=== PATIENT | female | born 1985 | race Caucasian/White ===

== ENCOUNTER 2018-03-06 14:56 | Emergency (ER) | payer OTHER ==
[~2018-03-06] VITALS: Ht 160 cm; Wt 54.4 kg
[2018-03-06 15:12] VITALS: BP 112/73
[2018-03-06] MEDS ORDERED: Tetanus/Diptheria/Pertussis Vaccine 0.5ml Syr IM ONE (15:15)
[2018-03-06] MEDS ORDERED: VIBRAMYCIN100 MG ORAL (15:35)
--- NOTE | 2018-03-06 15:52 | Emergency Room Report ---
History of Present Illness General Chief Complaint: Skin Rash/Abscess Source: Patient Present Illness HPI 32-year-old female presents to the emergency department complaining of 10 out of 10 in severity pain, tenderness, swelling, erythema to the dorsum of the left hand progressive 4 days status post IV drug use. Patient denies fevers, chills, nausea or vomiting. Patient does not know when her last tetanus vaccination was. Pt. reports she thinks she has a UTI due to frequency, denies hematuria, dysuria, urgency. Denies abdominal pain or tenderness. denies . Denies CP, Palpitations, LOC, AMS, dizziness, Changes in Vision, Sensation, paresthesias, or a sudden severe headache. Allergies: Coded Allergies: CIPROFLOXACIN (Verified Allergy, Unknown, 03/06/18) Patient History Past Medical History: see triage record Past Surgical History: none Pertinent Family History: none Social History: Reports: drug use Last Menstrual Period: 01/31/18 : 3 Para: 2 Reviewed Nursing Documentation: PMH: Agreed; PSxH: Agreed Review of Systems All Other Systems: negative except mentioned in HPI Physical Exam Vital Signs Date Time Temp Pulse Resp B/P (MAP) Pulse Ox O2 Delivery O2 Flow Rate FiO2 03/06/18 15:02 98.1 90 16 107/73 97 Room Air 98.1 Sp02 EP Interpretation: reviewed, normal General Appearance: no apparent distress, alert, GCS 15, non-toxic Head: normocephalic, atraumatic ENT: hearing grossly normal, normal voice Neck: full range of motion Respiratory: lungs clear, normal breath sounds, no respiratory distress, no wheezing, speaking full sentences Cardiovascular #1: regular rate, rhythm, other - decreased cap refill to the left ring finger compared to other fingers, pt. noted to have a ring on that is tight. Gastrointestinal: non tender Genitourinary: normal inspection, no CVA tenderness Musculoskeletal: back normal, gait/station normal, normal range of motion, swelling - dorsum of the left hand., tender - ttp superficially to the dorsum of the left hand. Neurologic: alert, oriented x3, responsive, motor strength/tone normal, sensory intact, speech normal, grossly normal Psychiatric: judgement/insight normal Skin: no rash, warm/dry, well hydrated, other - erythema, swelling and increased temperature to palpation to the dorsum of the left hand over lying the bases of the 3rd, 4th, and 5th metacarpal/ carpal area. Medical Decision Making PA Attestation Dr. Lomax is my supervising Physician whom patient management has been discussed with. Diagnostic Impression: Primary Impression: Cellulitis Qualified Codes: L03.114 - Cellulitis of left upper limb Additional Impression: UTI (urinary tract infection) Qualified Codes: N30.00 - Acute cystitis without hematuria ER Course 32-year-old female presents to the emergency department complaining of 10 out of 10 in severity pain, tenderness, swelling, erythema to the dorsum of the left hand progressive 4 days status post IV drug use. Patient denies fevers, chills, nausea or vomiting. Patient does not know when her last tetanus vaccination was. Pt. reports she thinks she has a UTI due to frequency, denies hematuria, dysuria, urgency. Denies CP, Palpitations, LOC, AMS, dizziness, Changes in Vision, Sensation, paresthesias, or a sudden severe headache. Ddx considered but are not limited to cellulitis, abscess, cystic acne, necrotizing fasciitis, insect bite. Vital signs: are WNL, pt. is afebrile H&PE are most consistent with ST Cellulitis of the left hand. ORDERS: -Xray left hand. -Urine HCG: negative - UA: consistent with infection, lab was performed late there is no change in management as both antibiotics cover Urinary bacteria and are appropriate for treatment. ED INTERVENTIONS: - Tetanus DISCHARGE: At this time pt. is stable for d/c to home. Will provide printed patient care instructions, and any necessary prescriptions. Care plan and follow up instructions have been discussed with the patient prior to discharge. Labs Test 03/06/18 16:30 Urine Color Yellow Urine Appearance Slightly cloudy Urine pH 6.5 (4.5-8.0) Urine Specific [place] 1.015 (1.005-1.035) Urine Protein 1+ (NEGATIVE) Urine Glucose (UA) Negative (NEGATIVE) Urine Ketones Negative (NEGATIVE) Urine Occult Blood 1+ (NEGATIVE) Urine Nitrite Negative (NEGATIVE) Urine Bilirubin Negative (NEGATIVE) Urine Urobilinogen 1 MG/DL (0.0-1.0) Urine Leukocyte Esterase 2+ (NEGATIVE) Urine RBC 2-4 /HPF (0 - 2) Urine WBC 15-20 /HPF (0 - 2) Urine Squamous Epithelial Cells Moderate /LPF (NONE/OCC) Urine Bacteria Moderate /HPF (NONE) Urine HCG, Qualitative Negative (NEGATIVE) Other X-Ray Diagnostic Results Other X-Ray Diagnostic Results : X-Ray ordered: xray hand # of Views/Limited Vs Complete: 3 View Indication: Swelling PA Xray: Interpretation reviewed, by supervising MD, and agrees with findings. Interpretation: no dislocation, other - Soft tissue swelling noted, no metallic fb's no obvious ST air. Impression: Other - ST swelling. Electronically Signed by: Chloe Kelsey PA-C Last Vital Signs Date Time Temp Pulse Resp B/P (MAP) Pulse Ox O2 Delivery O2 Flow Rate FiO2 03/06/18 15:12 98.1 74 16 112/73 97 Room Air 98.1 Disposition: HOME, SELF-CARE Condition: Stable Scripts Ibuprofen* (MOTRIN*) 600 Mg Tablet 600 MG ORAL THREE TIMES A DAY, #20 TAB 0 Refills Prov: Chloe Kelsey 03/06/18 Trimethoprim/Sulfamethoxazole 160/800* (BACTRIM DS TABLET*) 1 Each Tablet 1 TAB ORAL TWICE A DAY for 7 Days, #14 TAB Prov: Chloe Kelsey 03/06/18 Cephalexin* (KEFLEX*) 500 Mg Capsule 500 MG ORAL EVERY 12 HOURS for 7 Days, #14 CAP 0 Refills Prov: Chloe Kelsey 03/06/18 Patient Instructions: Abscess Additional Instructions: Take medications as directed. Follow up with a Primary Care Provider in 3-5 days, even if your symptoms have resolved. --Please review list of primary care clinics, if you do not already have a primary care provider Return sooner to ED if new symptoms occur, or current symptoms become worse. - Please note that this Emergency Department Report was dictated using [employer] pt technology software, occasionally this can lead to erroneous entry secondary to interpretation by the dictation equipment. Chloe Kelsey Mar 06, 2018 15:52
[2018-03-06] MEDS ORDERED: Tylenol #3 tab (300mg/30mg) ORAL ONE (16:15)
[2018-03-06] MEDS ORDERED: Bactrim-DS 1 tab ORAL ONE (16:15)
[2018-03-06] MEDS ORDERED: Cephalexin 500mg cap ORAL ONE (16:15)
[2018-03-06] MEDS ORDERED: CEPHALEXIN500 MG ORAL (16:29)
[2018-03-06] MEDS ORDERED: IBUPROFEN600 MG ORAL (16:29)
[2018-03-06] MEDS ORDERED: BACTRIM DS TAB1 EAC1 ORAL (16:29)
[2018-03-06 16:39] VITALS: BP 112/73
[2018-03-06 20:52] LABS: BILIRUBIN, URINE NEGATIVE (NEGATIVE); COLOR,URINE YELLOW; GLUCOSE, URINE (UA) NEGATIVE (NEGATIVE); KETONES,URINE NEGATIVE (NEGATIVE); LEUKOCYTE ESTERASE ,URINE 2+ (NEGATIVE); NITRITE,URINE NEGATIVE (NEGATIVE); PH,URINE 6.5 (4.5-8.0); PROTEIN,URINE 1+ (NEGATIVE); UROBILINOGEN,URINE 1 MG/DL (0.0-1.0)
[2018-03-06 20:53] LABS: APPEARANCE,URINE SLIGHTLY CLOUDY
--- NOTE | 2018-03-07 09:57 | Diagnostic Imaging Report ---
Indication: Hand pain Technique: 3 views left hand Comparison: none Findings: No acute fractures. No dislocations. The joint spaces are preserved. Impression: Negative
== END 2018-03-06 16:41 | disposition home or self-care (01) ==
LOC: EMR 16:17
DX: L03.114 Cellulitis of left upper limb (principal); N39.0 Urinary tract infection, site not specified; Z23 Encounter for immunization; Z88.1 Allergy status to other antibiotic agents
CPT/HCPCS: 81003; 81025; 87086; 87181; 90471; 90715; 99284